=== PATIENT | male | born 1960 | race Caucasian/White ===

== ENCOUNTER 2022-09-02 19:01 | Outpatient (REF) | payer BC, SELFPAY ==
[2022-09-02 19:53] LABS: HCT 44.8 % (40.0-50.0); HGB 15.6 g/dL (13.5-17.5); MCH 30.2 pg (27.0-33.0); MCHC 34.8 % (32.0-36.0); MCV 87 fL (80-95); MPV 10.1 fL (8.0-11.0); Platelet Count 341 10^3/uL (130-400); RBC 5.16 10^6/uL (4.36-5.78); RDW 12.7 % (11.8-14.1); RDW-SD 40.2 fL; WBC 3.75 10^3/uL (4.4-10.8)
[2022-09-02 20:07] LABS: ALT 28 U/L (16-63); AST 17 U/L (15-37); Albumin 3.9 g/dL (3.4-5.0); Alkaline Phosphatase 97 U/L (46-116); BUN 13 mg/dL (7-18); Bilirubin, Total 0.9 mg/dL (0.2-1.0); CREATININE 0.9 mg/dL (0.70-1.30); Calcium 8.7 mg/dL (8.5-10.1); Chloride 104 mmol/L (98-107); Estimated GFR 96.57 (mL/min/1.73m2); Glucose 129 mg/dL (74-106); Potassium 3.3 mmol/L (3.5-5.1); Sodium 141 mmol/L (136-145); Total Protein 6.8 g/dL (6.4-8.2)
[2022-09-02 20:12] LABS: Hemoglobin A1C 6.2 % (<5.7)
== END 2022-09-02 19:02 | disposition home or self-care (01) ==
LOC: NCHCN 19:01
PROVIDERS: Visit Provider Family Medicine
DX: E11.9 Type 2 diabetes mellitus without complications (principal); I10 Essential (primary) hypertension; E87.6 Hypokalemia
CPT/HCPCS: 80053; 85027; 83036

== ENCOUNTER 2023-05-13 10:59 | Day surgery (SDC) | payer BC, SELFPAY ==
--- NOTE | 2023-05-12 14:40 | W.COLOREPORT ---
Date of service: 05/13/23 Time of Service: 12:49 Colonoscopy Report Date of procedure: 05/13/23 Pre-op diagnosis general: +iFob Post-op diagnosis procedure note: same Surgeon: Prerna Pena Anesthesia Type: General:No Airway Estimated blood loss (mL): 1 Pathology: other Complications: None Disposition: same day Prep: Miralax/Dulcolax Retraction Time: 14 Procedure Description: After informed consent was obtained the patient was taken to the procedure room and placed in a left decubitous position. Monitors were applied and a time out was done. The patients name, date of , procedure, allergies to medications and metal in their body was reviewed. The patient was then sedated. Once sedated and comfortable a rectal exam was done. External exam was normal. Internal exam revealed a normal sphincter tone and no palpable masses. The prostate is non-palpable. The scope was then introduced and retrofelexed. Grade I internal hemorrhoids were identified. The scope was then advanced to the cecum w/out difficulty. The TI and appendiceal orifice were identified. The prep was BBPS 3 in all segments for a total of 9. the scope was then slowly retracted over 14 minutes back into the rectum. There are no diverticula noted. He has a .75 cm pedunculated polyp in the cecum. This is removed with a cold biting forcep. A clip is placed across the defect. He had a 0.75 cm flat polyp at 70 cm. This is removed with a cold biting forcep. He had a flat 0.5 cm polyp at 60 cm that is removed with a cold biting forcep. He had a .5 cm flat polyp in the rectum that is removed with a cold biting forceps. All specimens are retrieved and no bleeding noted. He has an area of abnormality colon mucosa from 40 to 60 cm. There is a whitish discoloration and the mucosa is very friable. I am not able to wash away the discoloration. multiple biopsies are taken from this area. This does not have the typical appearance of C. difficile or inflammatory bowel disease. None of his medications would account for this. He does not have any diverticula. The scope was removed and the patient was woken up and taken back to Same day surgery in stable condition. The patient tolerated the procedure well and there were no immediate complications. Follow up: The patient should follow up in ~5 years, path pending, unless they develop changes in bowel habits or other new gastrointestinal complaints.
--- NOTE | 2023-05-12 14:41 | PDOC.DSDIS_ITS ---
Date of service: 05/13/23 Time of Service: 12:57 Discharge Plan Disposition Patient Disposition: Home Condition: Good Discharge Details Reason For Visit: Colon scope Attending Provider: Prerna Pena Primary Care Provider: Hola Oswald Home Meds and New Rx's Prescriptions: Continued diltiazem HCl [Matzim LA] 240 mg tablet extended release 24 hr 240 mg PO HS metformin 500 mg tablet 1,000 mg PO HS sildenafil 100 mg tablet 100 mg PO DAILY PRN Rx Instructions: administer 30 minutes to 4 hours before activity lisinopril 40 mg tablet 40 mg PO HS Discontinued bisacodyl [Dulcolax (bisacodyl)] 5 mg tablet,delayed release (DR/EC) 5 mg PO ONCE Qty: 4 0RF Rx Instructions: Take per colonoscopy instructions provided by ordering providers office polyethylene glycol 3350 17 gram/dose powder 17 g PO ONCE Qty: 238 0RF Rx Instructions: Take per colonoscopy instructions provided by ordering providers office Discharge Instructions Additional Instructions: DSU Colonoscopy Post- Op Instructions Instructions for Everyone who is given Anesthesia: For your safety, please do the following for the next twenty-four (24) hours: *Do Not operate a motor vehicle (car, truck, motorcycle, etc.) *Do Not drink alcoholic beverages or use any recreational drugs for the first 24 hours or while taking pain medications. The medications in your body may have a reaction that can be dangerous. *Do Not make any important decisions or sign any important papers. Findings: Multiple colon polyps Follow up: My office will send you a letter in 2 to 3 weeks time with the results of the pathology and when we want you to repeat the colonoscopy. 1. No lifting over 20 pounds or strenuous activity for the first 24 hours after your procedure. After 24 hours there are no restrictions on your activity but you may feel fatigued for a few days. 2. After you arrive home you may have a light meal and return to your normal diet as you can tolerate it without feeling sick to your stomach. 3. You may have a bloated, gaseous feeling in your belly (abdomen) after a colonoscopy. Passing gas and belching will help. Walking or lying down on your left side with your knees flexed may relieve the discomfort. Call the office at [phone] (Office) or [phone] (Hospital) right away if you notice any of the following: a.Vomiting of blood or ?coffee ground stools?. b.Rectal bleeding 1Tbsp, blood clots or continuous bleeding. c.Severe belly (abdominal) pain. d.A hard distended belly (abdomen) and an inability to pass gas. 4. Please don?t expect to have a normal BM (bowel movement) for 2-3 days after your procedure. 5. If there are questions regarding the findings of your procedure, please contact your doctor 6. If you are unable to contact your doctor with a problem, contact the hospital at [phone]. 7. Continue all your regular medications unless directed otherwise. I understand the above instructions and have no questions. Signature of Patient or Adult Escort Name of Responsible Adult Escort Signature of Nurse Date/Time Stand Alone Forms: Anesthesia Discharge , Christal Cahves (DSU) Activity:: see above Diet:: see above Discharge Orders Discharge Orders: Discharge Order (Routine); Ordered 05/13/23 Ordered By: Prerna Pena DS: Diagnosis Discharge Diagnosis (1) Hypertension: Status: Chronic (2) Type 2 diabetes mellitus: Status: Acute (3) Positive fecal occult blood test: Status: Acute Asessment and Plan: The patient is seen and examined after their colonoscopy.? The patient has been able to pass gas.? They are not having abdominal pain.? They have been able to tolerate liquids and a snack.? They do not have any nausea or vomiting.? They are not having any chest pain or shortness of breath.??? They are not having any rectal bleeding. Their vital signs have been stable-see nursing notes. We discussed findings during their colonoscopy, and any biopsies that were done/polyps that were removed. The patient will be sent a letter with any biopsy results, and when to repeat the colonoscopy.-see discharge instructions. Patient was given explicit instructions to follow-up regarding colonoscopy-refer to discharge instructions.? We reviewed resumption of medications.Patient verbalized understanding and discharged in stable and satisfactory condition- See nursing notes (4) Adenomatous polyps: Status: Acute
[2023-05-13 11:23] VITALS: BP 161/90; PULSE 71; RESP 18; TEMP 36.4; O2SAT 100
[2023-05-13] MEDS: Lactated Ringers 1,000 ML 80 ML IV (11:37)
[2023-05-13 11:39] VITALS: BP 158/90
--- NOTE | 2023-05-13 11:41 | W.ANESPRE ---
General Info Date of Service Date Performed: 05/13/23 Height: 6 ft 4 in Weight: 109.5 kg Body Mass Index (BMI): 29.3 Surgical Procedure: Operation Date: 05/13/23 11:20 Proposed Procedure Side Surgeon lore Pena, Meds Allergies and Home Medications Allergies Allergy/AdvReac Type Severity Reaction Status Date / Time codeine Allergy Unknown Dizziness/L Verified 05/13/23 11:19 [place] Home Medication Medication Instructions Recorded diltiazem HCl 240 mg 240 mg PO HS 03/09/23 tablet,extended release 24 hr (Matzim LA) lisinopril 40 mg tablet 40 mg PO HS 03/09/23 metformin 500 mg tablet 1,000 mg PO HS 03/09/23 sildenafil 100 mg tablet 100 mg PO DAILY PRN 03/09/23 Current Visit Medications: Current Medications Generic Name Dose Route Start Last Admin Trade Name Freq PRN Reason Stop Dose Admin Hyoscyamine Sulfate 0.125 mg 05/13/23 08:17 Hyoscyamine 0.125 Mg Sl/Oral/Chew SL 06/12/23 08:16 DIRECTED PRN Ringer's Solution 1,000 mls @ 80 mls/hr 05/13/23 06:00 05/13/23 11:37 IV 06/11/23 23:59 80 mls/hr INFUSION JUDY Administration IV Miscellaneous Supplies 1 each 05/13/23 06:00 Iv Access IV 06/11/23 23:59 DIRECTED JUDY Ondansetron HCl 4 mg 05/13/23 08:17 Ondansetron 4 Mg/2 Ml Vial IVP 06/12/23 08:16 Q4H PRN PRN Nausea / Vomiting Sodium Chloride 0 ml 05/13/23 06:00 Normal Saline Flush 10 Ml Syr IV 06/11/23 23:59 PRN PRN Sodium Chloride 0 ml 05/13/23 06:00 Normal Saline 10 Ml Vial IJ 06/11/23 23:59 DIRECTED PRN Sterile Water 0 ml 05/13/23 06:00 Water,Injection,Sterile 10 Ml Vial IJ 06/11/23 23:59 DIRECTED PRN PFSH Active Problems Active Problems: Problem Status Onset Code Positive fecal occult blood test R19.5 Hypertension I10 Type 2 diabetes mellitus E11.9 Medical History Medical History DJD (degenerative joint disease) of cervical spine Hypokalemia Surgical History Surgical History Hx of nasal septoplasty Hx of colonoscopy Tobacco Smoking/Tobacco Use Status: Never Alcohol Alcohol Intake: current Alcohol intake frequency: a few times a month Substance Use Substance use type: does not use Vital Signs and Lab Results Vital Signs Most Recent Vital Signs in EMR: Most Recent Vital Signs Temp Pulse Resp BP Pulse Ox 36.4 C L 71 18 158/90 H 100 05/13/23 11:23 05/13/23 11:23 05/13/23 11:23 05/13/23 11:39 05/13/23 11:23 Point of Care Results Point of Care Results: Finger Stick Blood Glucose 105 05/13/23 11:23 Lab Results Blood Type / Crossmatch: No Data to Display Complete Blood Count: No Data to Display Complete Metabolic Panel: No Data to Display Liver Function Panel: No Data to Display Coagulation Panel: No Data to Display Cardiac Panel: No Data to Display Arterial Blood Gas: No Data to Display Venous Blood Gas: No Data to Display Pancreas Panel: No Data to Display Thyroid Panel: No Data to Display Infectious Disease: No Data to Display Blood Cultures: No Data to Display Toxicology Panel: No Data to Display Anesthesia Assessment and Plan Anesthesia History Personal History: No History of Anesthesia Complications Family History: No Family History of Anesthesia Complications Exercise Tolerance Exercise Tolerance: Metabolic Equivalents>4 Pertinent Negatives Pertinent Negatives: No Symptoms of GERD, No Major Cardiovascular Symptoms or Complaints, No Major Pulmonary Symptoms or Complaints and No History of CVA/TIA Cardiac & Pulmonary Exam Cardiac Exam: Normal S1/S2 Heart Sounds Pulmonary Exam: Clear Bilateral Breath Sounds Implantable Cardiac Device Does patient have a Pacemaker or an ICD?: No Airway Exam Known Difficult Airway: No Mallampati Class: 2 Mouth Opening: Normal (> 3cm) Thyromental Distance: Greater than 3 cm Neck Range of Motion: Full ROM Neck Circumference: Normal Teeth Condition: Removable Dentures/Plates Upper (partial) ASA Classification ASA Score: ASA 2 Emergency Case?: No NPO Status NPO Status: NPO Clears >2 hours, Solids >8 hours Anesthesia Plan Resuscitation Status: Full Code Anesthesia Technique: General Anesthesia Airway Planned: Natural Airway Monitors Used: Standard Monitors
[2023-05-13 11:45] VITALS: BMI 29.3
--- NOTE | 2023-05-13 12:00 | BOWEL_PTH ---
PATIENT: Osvaldo Breaux LOC: [facility] U#:[id number] AGE/SX: 62/M ROOM: RE05/13/[address]: Prerna Pena : 1960 BED: DIS: 05/13/2023 SPEC #: [id number] RECD: 05/13/23 12:52 STATUS: REGINA RE #: [id number] ELSA: 05/13/23 12:[address]: Prerna Pena DEPT: Surgical Specimen RECD BY: Marquita Escobar ENTERED: 05/13/23 12:53 SP TYPE: Bowel OTHR DR: Hola Oswald Tissues: 1 - BIOPSY BOWEL 2 - BIOPSY BOWEL 3 - BIOPSY BOWEL 4 - BIOPSY BOWEL Procedures: GROSS AND MICRO LEVEL 4 Comments: [id number]
[2023-05-13 12:30] VITALS: BP 114/71; PULSE 59; RESP 16; TEMP 36.5; O2SAT 98
[2023-05-13 13:00] VITALS: BP 141/82; PULSE 60; RESP 16; TEMP 36.7; O2SAT 99
--- NOTE | 2023-05-13 13:04 | W.ANESPOSTOP ---
Postoperative Evaluation Date, Time and Location Date Performed: 05/13/23 Time Performed: 12:57 Patient Location: Day Surgery Unit Vital Signs Most Recent Imported Vital Signs: Most Recent Vital Signs Temp Pulse Resp BP Pulse Ox 36.5 C 59 L 16 114/71 98 05/13/23 12:30 05/13/23 12:30 05/13/23 12:30 05/13/23 12:30 05/13/23 12:30 Pain Score Most Recent Pain Score: Most Recent Pain Score Pain Level 0 05/13/23 12:30 Assessment Mental Status: Awake (Alert & Oriented to Patient Baseline) Airway and Respiratory Function: Patent airway with normal (patient baseline) respiratory exam Cardiovascular Function: Hemodynamically Stable Hydration Status: Adequately Hydrated Nausea & Vomiting: No Nausea or Vomiting Pain: Pt. Denies Any Pain Peripheral Nerve Block: Patient did not receive a nerve block
== END 2023-05-13 11:00 | disposition home or self-care (01) ==
LOC: SUR 10:59
PROVIDERS: PCP Family Medicine; Visit Provider Surgery
PROC: 0DJD8ZZ Inspection of Lower Intestinal Tract, Via Natural or Artificial Opening Endoscopic (ICD-10-PCS; CPT 45378; principal; 2023-05-13 11:15)
DX: Z12.11 Encounter for screening for malignant neoplasm of colon (principal); D12.0 Benign neoplasm of cecum; K64.0 First degree hemorrhoids; R19.5 Other fecal abnormalities; I10 Essential (primary) hypertension; E11.9 Type 2 diabetes mellitus without complications; D12.5 Benign neoplasm of sigmoid colon; K63.89 Other specified diseases of intestine
CPT/HCPCS: 45380; 88305; J2001; J2704

== ENCOUNTER 2023-07-14 12:23 | Outpatient (REF) | payer BC, SELFPAY ==
[2023-07-14 15:02] LABS: Hemoglobin A1C 5.9 % (<5.7)
[2023-07-14 15:11] LABS: Anion Gap 10.6 mmol/L (3-11); BUN 18 mg/dL (7-18); CO2 26.4 mmol/L (21.0-32.0); Chloride 106 mmol/L (98-107); Estimated GFR 84.57 (mL/min/1.73m2); Glucose 152 mg/dL (74-106); Sodium 143 mmol/L (136-145)
== END 2023-07-14 12:24 | disposition home or self-care (01) ==
LOC: NCHCN 12:23
PROVIDERS: PCP Family Medicine; Visit Provider Family Medicine
DX: E11.9 Type 2 diabetes mellitus without complications (principal)
CPT/HCPCS: 80048; 83036

== ENCOUNTER 2024-01-12 22:09 | Outpatient (REF) | payer BC, SELFPAY ==
[2024-01-12 14:37] LABS: Abs Immature Grans 0.01 10^3/uL (0.0-0.06); Absolute Basophil Count 0.07 10^3/uL (0.0-0.2); Absolute Eosinophil Count 0.03 10^3/uL (0.0-0.7); Absolute Lymphocyte Count 0.96 10^3/uL (1.2-3.4); Absolute Monocyte Count 0.42 10^3/uL (0.1-0.8); Absolute Neutrophil Count 2.12 10^3/uL (1.2-6.7); Basophils % 1.9 %; Eosinophils % 0.8 %; HCT 45.6 % (40.0-50.0); HGB 15.6 g/dL (13.5-17.5); Immature Grans % 0.3 %; Lymphocytes % 26.6 %; MCH 29.9 pg (27.0-33.0); MCHC 34.2 % (32.0-36.0); MCV 87 fL (80-95); MPV 9.9 fL (8.0-11.0); Monocytes % 11.6 %; Neutrophils % 58.8 %; Platelet Count 317 10^3/uL (130-400); RBC 5.22 10^6/uL (4.36-5.78); RDW 12.5 % (11.8-14.1); RDW-SD 39.8 fL; WBC 3.61 10^3/uL (4.4-10.8)
[2024-01-12 15:02] LABS: ALT 26 U/L (16-63); AST 13 U/L (15-37); Albumin 3.9 g/dL (3.4-5.0); Alkaline Phosphatase 109 U/L (46-116); Anion Gap 11.7 mmol/L (3-11); BUN 16 mg/dL (7-18); Bilirubin, Total 0.92 mg/dL (0.2-1.0); CO2 26.3 mmol/L (21.0-32.0); Calcium 8.9 mg/dL (8.5-10.1); Chloride 104 mmol/L (98-107); Estimated GFR 84.57 (mL/min/1.73m2); Glucose 141 mg/dL (74-106); LDL CHOLESTEROL 84 mg/dL (<100); Potassium 3.3 mmol/L (3.5-5.1); Sodium 142 mmol/L (136-145)
[2024-01-13 17:42] LABS: COMMENT (LAB VIEW ONLY) 153.84 mg/dL; Microalb ug/mg Crea 21.5 ug/mg Cr
== END 2024-01-12 22:10 | disposition home or self-care (01) ==
LOC: NCHCN 22:09
PROVIDERS: PCP Family Medicine; Visit Provider Family Medicine
DX: E11.9 Type 2 diabetes mellitus without complications (principal); I10 Essential (primary) hypertension
CPT/HCPCS: 80053; 83721; 82043; 82570; 85025

== ENCOUNTER 2024-08-07 10:03 | Outpatient (REF) | payer OTHER, SELFPAY ==
[2024-08-07 15:00] LABS: Anion Gap 8.9 mmol/L (3-11); BUN 14 mg/dL (7-18); CO2 31.1 mmol/L (21.0-32.0); CREATININE 1.1 mg/dL (0.70-1.30); Calcium 9.2 mg/dL (8.5-10.1); Chloride 103 mmol/L (98-107); Estimated GFR 74.96 (mL/min/1.73m2); Glucose 168 mg/dL (74-106); Sodium 143 mmol/L (136-145)
== END 2024-08-07 10:04 | disposition home or self-care (01) ==
LOC: NCHCN 10:03
PROVIDERS: PCP Family Medicine; Visit Provider Family Medicine
DX: I10 Essential (primary) hypertension (principal)
CPT/HCPCS: 80048

== ENCOUNTER 2025-03-20 10:52 | Outpatient (REF) | payer OTHER, SELFPAY ==
--- NOTE | 2025-03-20 10:05 | SKI_PTH ---
PATIENT: Osvaldo Breaux LOC: [facility]#:[id number] AGE/SX: 64/M ROOM: RE03/20/[address]: Hola Oswald : 1960 BED: DIS: 03/20/2025 SPEC #: [id number] RECD: 03/20/25 18:14 STATUS: REGINA REPito #: [id number] ELSA: 03/20/25 10:[address]: Hola Oswald DEPT: Surgical Specimen RECD BY: Marquita Escobar Tissues: 1 - SKIN BIOPSY(SHAVE/PUNCH) Procedures: IMMUNOPEROXIDASE STAIN SKIN LEVEL 4 Comments: [id number]
== END 2025-03-20 10:53 | disposition home or self-care (01) ==
LOC: NCHCN 10:52
PROVIDERS: PCP Family Medicine; Visit Provider Family Medicine
DX: D23.72 Other benign neoplasm of skin of left lower limb, including hip (principal)
CPT/HCPCS: 88305; 88361